=== PATIENT | male | born 1940 | race Caucasian/White ===

== ENCOUNTER 2019-11-08 11:13 | Emergency (ER) | payer OTHER ==
--- NOTE | 2019-11-08 12:23 | ER Document Report ---
ED Medical Screen (RME) - General Chief Complaint: Leg Swelling Stated Complaint: RIGHT LEG PAIN Time Seen by Provider: 11/08/19 12:21 Mode of Arrival: Ambulatory Information source: Patient Notes: 79-year-old man presented to ED for complaint of right leg swelling for about a week. He states it is getting bigger and more tight so he came to the emergency room to get it checked out. He states it does have some redness and tenderness to it now. He also has pain behind the right knee. He states he has had pain behind the right knee in the past. He states he has not been to a doctor in a while. States he has a history of high blood pressure and some sinus congestion and has had a right inguinal hernia repair. He does to have cannot tobacco a day does not drink or use any drugs. He is alert oriented respirations regular nonlabored speaking in full sentences. We will get a venous Doppler and x-ray of the right knee as well as a PT PTT I have greeted and performed a rapid initial assessment of this patient. A comprehensive ED assessment and evaluation of the patient, analysis of test results and completion of medical decision making process will be conducted by an additional ED providers. - Related Data Home Medications: 5mg lisinopril daily Past Medical History - Social History Chew tobacco use (# tins/day): Yes - 1/2 tin per day Frequency of alcohol use: None Drug Abuse: None - Past Medical History Cardiac Medical History: Reports: Hx Hypertension Past Surgical History: Reports: Hx Abdominal Surgery - rt inguinal hernia Physical Exam - Vital signs Vitals: Temp Pulse Resp BP Pulse Ox 98.7 F 68 16 155/56 H 97 11/08/19 11:20 11/08/19 11:20 11/08/19 11:20 11/08/19 11:20 11/08/19 11:20 Course - Vital Signs Vital signs: Temp Pulse Resp BP Pulse Ox 98.7 F 68 16 155/56 H 97 11/08/19 11:20 11/08/19 11:20 11/08/19 11:20 11/08/19 11:20 11/08/19 11:20
[2019-11-08 12:57] LABS: INTERNATIONAL RATION (INR) 1.01; PROTHROMBIN TIME 13.5 SEC (11.4-15.4)
[2019-11-08 12:58] LABS: PARTIAL THROMBOPLASTIN TIME 27.6 SEC (23.5-35.8)
--- NOTE | 2019-11-08 13:37 | RADIOLOGY REPORT (SQ) ---
EXAM DESCRIPTION: TIBIA FIBULA RIGHT IMAGES COMPLETED DATE/TIME: 11/08/2019 1:22 pm REASON FOR STUDY: pain and swelling in R tib/fib COMPARISON: None. NUMBER OF VIEWS: Two views. TECHNIQUE: Two radiographic images acquired of the right tibia and fibula to include the knee and an kle in at least one projection. LIMITATIONS: None. FINDINGS: MINERALIZATION: Normal. BONES: No acute fracture or dislocation. No worrisome bone lesions. SOFT TISSUES: No obvious swelling or foreign body. OTHER: No other significant finding. IMPRESSION: NEGATIVE STUDY OF THE RIGHT TIBIA AND FIBULA. NO RADIOGRAPHIC EVIDENCE OF ACUTE INJURY. TECHNICAL DOCUMENTATION: JOB ID: [id number] 2010 [employer]- All Rights Reserved Reading location - IP/workstation name: [email or web address]
--- NOTE | 2019-11-08 13:38 | RADIOLOGY REPORT (SQ) ---
EXAM DESCRIPTION: KNEE RIGHT 4 VIEWS IMAGES COMPLETED DATE/TIME: 11/08/2019 1:22 pm REASON FOR STUDY: Swelling pain COMPARISON: None. NUMBER OF VIEWS: Four views. TECHNIQUE: AP, lateral, and both oblique radiographic images acquired of the right knee. LIMITATIONS: None. FINDINGS: MINERALIZATION: Normal. BONES: No acute fracture or dislocation. No worrisome bone lesions. JOINT: There is mild medial compartment narrowing with small marginal osteophytes. Small posterior p atellar osteophytes are present. No joint effusion. SOFT TISSUES: No soft tissue swelling. No radio-opaque foreign body. OTHER: No other significant finding. IMPRESSION: Mild degenerative joint changes. No acute finding. TECHNICAL DOCUMENTATION: JOB ID: [id number] 2010 [employer]- All Rights Reserved Reading location - IP/workstation name: [email or web address]
--- NOTE | 2019-11-08 15:15 | ER Document Report ---
ED General - General Chief Complaint: Leg Swelling Stated Complaint: RIGHT LEG PAIN Time Seen by Provider: 11/08/19 12:21 Mode of Arrival: Ambulatory Notes: HPI: Patient is an 79-year-old male who presents today stating he has had a little bit of pain to his right anterior atikns and behind his right knee for around a week. He does not believe that he hit his leg but "cannot be certain". He denies any real discoloration or swelling compared to the left leg. No fever, vomiting, chest pain, shortness of breath. No weakness or numbness to the leg. No history of DVT. ROS: See HPI All other review of systems reviewed and otherwise negative Reviewed vital signs and nursing note as charted by RN. PHYSICAL EXAM: CONSTITUTIONAL: Alert and oriented and responds appropriately to questions. Well-appearing; well-nourished HEAD: Normocephalic; atraumatic CARD: Regular rate and rhythm; no murmurs; symmetric distal pulses RESP: Normal chest excursion without splinting or tachypnea; breath sounds clear and equal bilaterally; no wheezes, no rhonchi, no rales ABD/GI: Normal bowel sounds; non-distended; soft, non-tender BACK: The back appears normal and is non-tender to palpation EXT: I do not detect any obvious leg discrepancy of the right leg was the left. Both have very minimal 1+ pitting edema to the lower shins. No obvious posterior calf tenderness. Patient has more anterior tibial-like tenderness with no lesions. No obvious gross cellulitis to the right leg. No blisters or weeping noted. Excellent distal bilateral pulses SKIN: See above NEURO: CN 2-12 intact; 5/5 bilateral upper and lower extremity strength with sensation intact to light touch PSYCH: The patient's mood and manner are appropriate. Grooming and personal hygiene are appropriate. - Related Data Home Medications: 5mg lisinopril daily Past Medical History - General Information source: Patient - Social History Smoking Status: Never Smoker Chew tobacco use (# tins/day): Yes - 1/2 tin per day Frequency of alcohol use: None Drug Abuse: None Family History: Reviewed & Not Pertinent Patient has homicidal ideation: No - Past Medical History Cardiac Medical History: Reports: Hx Hypertension Past Surgical History: Reports: Hx Abdominal Surgery - rt inguinal hernia Physical Exam - Vital signs Vitals: Temp Pulse Resp BP Pulse Ox 98.7 F 68 16 155/56 H 97 11/08/19 11:20 11/08/19 11:20 11/08/19 11:20 11/08/19 11:20 11/08/19 11:20 Course - Re-evaluation Re-evalutation: Given the above history and physical, x-ray of the right tibia/fibula and Doppler ultrasound have been performed. Would like to evaluate for the possibility of a small fracture versus DVT. 11/08/19 15:12 X-ray and ultrasound as recorded. No change in exam. I will start the patient on a 7-day course of doxycycline with strict return precautions and follow-up with the primary care doctor. Patient is very comfortable with this plan. - Vital Signs Vital signs: Temp Pulse Resp BP Pulse Ox 98.7 F 68 16 155/56 H 97 11/08/19 11:20 11/08/19 11:20 11/08/19 11:20 11/08/19 11:20 11/08/19 11:20 Discharge - Discharge Clinical Impression: Right leg pain Condition: Good Disposition: HOME, SELF-CARE Additional Instructions: Come back immediately for any return of any leg swelling, leg pain, fevers, vomiting, chest pain, shortness of breath, or any other acute problems. Please make sure that she follow-up with the primary care physician for reassessment as discussed and take the antibiotics as prescribed. Prescriptions: Doxycycline Hyclate 100 mg PO BID 7 Days #14 tablet.
[2019-11-08 15:25] VITALS: BP 157/65
--- NOTE | 2019-11-08 16:21 | RADIOLOGY REPORT (SQ) ---
EXAM DESCRIPTION: VENOUS UNILATERAL LOWER IMAGES COMPLETED DATE/TIME: 11/08/2019 4:14 pm REASON FOR STUDY: Right leg swelling erythema pain COMPARISON: None. TECHNIQUE: Dynamic and static lopez scale and color images acquired of the right leg venous system. S elected spectral images acquired with additional compression and augmentation maneuvers. The contrala teral common femoral vein and saphenofemoral junction were also imaged. Images stored on PACS. LIMITATIONS: None. FINDINGS: COMMON FEMORAL: Normal phasicity, compression and augmentation. No visualized echogenic ma terial on lopez scale. No defects on color images. FEMORAL: Normal compression and augmentation. No visualized echogenic material on lopez scale. No defe cts on color images. POPLITEAL: Normal compression, augmentation. No visualized echogenic material on lopez scale. No defec ts on color images. CALF VESSELS: Normal compression, augmentation. No visualized echogenic material on lopez scale. No de fects on color images. GSV and SSV: Normal compression, augmentation. No visualized echogenic material on lopez scale. No def ects on color images. ANY DEEP VENOUS INSUFFICIENCY: Not evaluated. ANY EVIDENCE OF POPLITEAL CYST: No. OTHER: No other significant finding. CONTRALATERAL COMMON FEMORAL VEIN: Normal phasicity, compression and augmentation. No visualized echogenic material on lopez scale. No de fects on color images. IMPRESSION: 1. NO EVIDENCE OF DVT OR SVT IN THE RIGHT LEG. TECHNICAL DOCUMENTATION: JOB ID: [id number] 2010 [employer]- All Rights Reserved Reading location - IP/workstation name: [email or web address]
== END 2019-11-08 15:26 | disposition home or self-care (01) ==
LOC: ER 11:13
DX: M79.604 Pain in right leg (principal); M79.89 Other specified soft tissue disorders; F17.220 Nicotine dependence, chewing tobacco, uncomplicated; I10 Essential (primary) hypertension
CPT/HCPCS: 36415; 85610; 85730; 93971; 99285